=== PATIENT | male | born 1980 | race Caucasian/White ===

== ENCOUNTER 2019-10-19 13:04 | Emergency (ER) | payer SELFPAY ==
[~2019-10-19] VITALS: Ht 188 cm; Wt 104.3 kg
[~2019-10-19 13:04] MED LIST: ALBIPROI INH; ALBU90OI INH; AMOCLA875 PO; AMOX500 PO; AZIT250 PO; BENZ100A PO; BUDE10.22; BUDE6HFA INH; CEPH500; HYDACE5 PO; IBUP800 PO; ITRA100 PO; Lamisil At24 GM TOP; NAPR500 PO; OXYACE5T PO; PENVK500 PO; PROCODE120 PO; PSEU120ER PO; PSEU30 PO; RXNEOPOLHC AS; SPACE CHAMBER1 EACH MC; SULTRIDS PO; Ultram50 MG PO; Veetids 500500 MG PO; Ventolin/Prove6.7 GM INH
[2019-10-19] MEDS ORDERED: Valium5 MG PO (13:41)
== END 2019-10-19 13:59 | disposition home or self-care (01) ==
LOC: ER 13:04
DX: G89.29 Other chronic pain (principal); M54.5 Low back pain; J45.909 Unspecified asthma, uncomplicated; F17.200 Nicotine dependence, unspecified, uncomplicated
CPT/HCPCS: 96372; 99283-25; J1885; J3360